=== PATIENT | female | born 1990 | race Caucasian/White ===

== ENCOUNTER → 2016-09-04 | Outpatient (CLI) | payer OTHER ==
[~2016-09-04] MED LIST: ALBU1AER9 INH; ETONMIS VAGRING; LEVO25TA5 PO; TRAZ1TAB8 PO; WLLSR150 PO
[2016-09-05 06:58] LABS: ESTIMATED AVERAGE GLUCOSE 94 mg/dl; HA1C FLAG Normal (Normal)
== END | disposition home or self-care (01) ==
LOC: C.LAB1850 15:38
PROVIDERS: ATTEND Internal Medicine Cardiovascular Disease
DX: R73.09 Other abnormal glucose (principal)

== ENCOUNTER 2020-05-22 16:55 | Inpatient (IN) ==
--- OUTSIDE RECORDS SUMMARY | 2020-05-22 16:58 | External Medical Summary | Continuity of Care Document ---
:1990 Author Name Tameka Nick, Provider Address Unavailable Unavailable , Care Team Providers Name Role Phone Unavailable Unavailable Unavailable Dieudonne Vang Unavailable [email or web address] [email or web address] TOVAR M.D. Unavailable Unavailable Unavailable Unavailable Unavailable Problems High risk medication use (V58.69) (Z79.899) Numbness of hand (782.0) (R20.0) Hypothyroidism (244.9) (E03.9) Elevated glucose level (790.29) (R73.09) Syncope (780.2) (R55) History of intravenous drug use in remission (305.93) (Z87.8 98) Absence of menses due to use of contraceptive (626.0) (N91.2 ) Acute upper respiratory infection (465.9) (J06.9) Acute pharyngitis (462) (J02.9) Depression (311) (F32.9) Vitamin D deficiency (268.9) (E55.9) Insomnia (780.52) (G47.00) Asthma (493.90) (J45.909) Anxiety (300.00) (F41.9) Callus (700) (L84) Screening for lipoid disorders (V77.91) (Z13.220) Contraceptive use (V25.40) (Z30.40) Allergies and Adverse Reactions No Known Drug Allergies (Allergy) Medications NuvaRing 0.12-0.015 MG/24HR Vaginal Ring; USE DIRECTED KEITH García Start: 17-May-2014 Quantity: 3 Refills: 3 Ibuprofen 200 MG Oral Tablet; TAKE 3 TABLET Every 6 hours NH N , M.D. Refills: 0 Ventolin HFA 108 (90 Base) MCG/ACT Inhal ation Aerosol Solution; INHALE 1 TO 2 PUFFS EVERY 4 TO 6 HOURS NEEDED. Sandoval Kasper Start: 17-May-2014 Quantity: 1 18 GM Inhaler Refills: 5 Vitamin D3 50 MCG (2000 UT) Oral Capsule; TAKE 2 CAPSULE Heidi ly DO Roberto Tovar Start: 26-Jun-2015 Refills: 3 Wellbutrin SR 200 MG Oral Tablet Extende d Release 12 Hour; TAKE 1 TABLET TWICE DAILY. Sandoval Refills: 0 traZODone HCl - 100 MG Oral Tablet; TAKE 2 TABLET Bedtime DO Roberto Chawla Start: 26-Jun-2015 Refills: 0 Levothyroxine Sodium 25 MCG Oral Tablet; take 1 tablet by mouth once daily DO Roberto Tovar Start: 22-Dec-2014 Quantity: 30 Refills: 5 Procedures Procedures not documented Immunizations Immunizations not documented Family History Father Family history of schizophrenia (V17.0) (Z81.8) Status: Acti ve Family history of muscular dystrophy (V17.2) (Z82.0) Status: Active Mother Family history of hypertension (V17.49) (Z82.49) Status: Act harlan Family history of seizures (V19.8) (Z84.89) Status: Active Brother Family history of bipolar disorder (V17.0) (Z81.8) Status: A ctive Family history of depression (V17.0) (Z81.8) Status: Active Social History - Smoking Status Never smoked tobacco Plan of Treatment Planned Observations Planned Goals not documented Results No Known Results Results not documented
[2020-05-22] MEDS ORDERED: ONDANSETRON INJ 2 MG/ML 2 ML VIAL IV STA (19:16)
[2020-05-22] MEDS ORDERED: SODIUM CHLORIDE 0.9% 1000ML 2,000 ML IV ONE (19:16)
[2020-05-22] MEDS ORDERED: KETOROLAC TROMETHAMINE 15 MG/ML VIAL IV ONE (19:16)
--- NOTE | 2020-05-22 19:21 | Emergency Department Note ---
Impression & Plan Sepsis, Flank Pain, Pyelonephritis ED Provider Note NAME: CAT JOSEPH AGE: 29 SEX: F : 1990 ARRIVES VIA: Walk-In INFORMANT: Patient ED PROVIDER(S): Epi Wayne DO CHIEF COMPLAINT: Flank pain HPI: Patient is a 29-year-old female who presents the ER for right flank pain. This started this past . It has been gradually getting worse. She de scribes as a 7 out of 10. She admits to nausea and vomiting with it. She has been taking Tylenol. She was seen by her PCP at [facility] and had an x-ray and a urine culture with some apparent E. coli. She denies any fevers. No chest pain or shortness of breath. No loss of taste or smell. No other exacerbating or remitting factors. No history of any stones. No previous abdominal surgeries. Last menstrual period was several months ago as she has an IUD. Pain in the right flank is worse with twisting turning bending. ROS: See above HPI for pertinent positives & negatives. A total of 10 systems reviewed and were otherwise negative. PAST MEDICAL HISTORY:See Below PAST SURGICAL HISTORY:See Below FAMILY HISTORY:See Below SOCIAL HISTORY:See Below HOME MEDICATIONS:See Below ALLERGIES:See Below VITALS:See Below PHYSICAL EXAMINATION: GENERAL: Sitting up in bed, alert, well appearing, well nourished, no distress, non-toxic EYE EXAM: normal conjunctiva. OROPHARYNX: no exudate, no erythema, lips, buccal mucosa, and tongue normal and mucous membranes are moist NECK: supple, no nuchal rigidity, no adenopathy, non-tender LUNGS: Clear to auscultation. Normal chest wall mechanics HEART: no murmurs, S1 normal and S2 normal ABDOMEN: abdomen soft, mild tenderness throughout right flank, normo-active bowel sounds, no masses, no rebound or guarding. BACK: Back is symmetrical on inspection and there is no deformity, no midline tenderness, no CVA tenderness. SKIN: no rashes and no bruising UPPER EXTREMITIES: upper extremities are grossly normal. LOWER EXTREMITIES: No pitting edema. NEURO EXAM: Normal sensorium, cranial nerves II-XII grossly intact, normal speech, no gross weakness of arms, no gross weakness of legs. MEDICAL DECISION MAKING: Patient is a 29-year-old female who presents the ER for right flank pain associated with known E. coli UTI referred in. IV was established blood work was obtained. Labs show leukocytosis of 19,000. No significant anemia. Platelets were elevated. BMP with mild hyponatremia. LFTs bilirubin was unremarkable. Lipase was normal. UA did have nitrates, white cells, leukocytes and bacteria. was negative. CT abdomen pelvis shows hydroureter consistent with either a recently passed stone or a sending infection. With a clear UTI, white count and heart rate in the 130s initially favor this con sistent with sepsis secondary to pyelonephritis. Patient was given IV fluids and IV antibiotics. She was also given IV Toradol and Zofran. She did vomit earlier today. With her history discussed with the hospitalist for further evaluation and admission. Triage Nursing notes reviewed. Prior medical records reviewed Vital Signs: reviewed and remarkable for tachy Differential diagnosis: Differential diagnosis includes etiologies such as sepsis, UTI, pneumonia, metabolic, electrolyte abnormalities, cardiac sources, intracerebral event, toxicologic, neurological, as well as others were entertained. ER treatment provided: See below Diagnostics interpreted by me: ECG: none Cardiac Monitoring: An order was placed for continuous cardiac monitoring. The monitor shows a rate of 110 with sinus rhythm. Laboratory studies: As stated above and show below. Imaging studies: CT as discussed above Consultation(s): Discussed with Dr. Brooke for further evaluation ED COURSE: Procedures: none Critical Care: None Past Med/Surg History Social History Smoking Status: Never smoker Feels Safe at Home: Yes Allergies Allergies Allergy/AdvReac Type Severity Reaction Status Date / Time house dust AdvReac Severe Asthma Verified 05/22/20 21:32 attack ENVIRONMENTAL Allergy Intermediate ITCHY Uncoded 05/22/20 21:32 EYES,RUNNY NOSE, SNEEZE Home Meds Home Medications Medication Instructions Recorded Confirmed albuterol sulfate 2 puff INHALATION Q4H PRN 05/22/20 05/22/20 bupropion HCl [Wellbutrin SR] 400 mg PO QAM 05/22/20 05/22/20 fluoxetine [Prozac] 40 mg PO QAM 05/22/20 05/22/20 fluticasone propionate 2 spray INTRANASAL DAILY PRN 05/22/20 05/22/20 levonorgestrel [Mirena] 20 mcg INTRAUTERINE DIRECTED 05/22/20 05/22/20 levothyroxine 25 mcg PO QAM 05/22/20 05/22/20 spironolactone 25 mg PO QAM 05/22/20 05/22/20 trazodone 200 mg PO 05/22/20 05/22/20 Results & Data (ED) Vital Signs Vital Signs - 24 hr 05/22/20 17:37 05/22/20 19:33 05/22/20 20:00 Temperature 37.3 C Temperature Source Oral Pulse Rate 124 H 105 H 101 H Respiratory Rate 18 22 22 Respiratory Effort / Characteristics Non-Labored Spontaneous Respiratory Depth Normal Respiratory Pattern Regular Blood Pressure 134/86 Blood Pressure Mean 102 Blood Pressure Position Sitting Pulse Oximetry 96 Oxygen Delivery Method Room Air Sepsis Recent Fever Within 48 Hours Yes Sepsis New/Unexplained Change in Mental Status N/A Sepsis Action Taken by Nursing No Action Required 05/22/20 20:33 05/22/20 21:00 05/22/20 21:30 Temperature Temperature Source Pulse Rate 111 H 100 H 100 H Respiratory Rate 19 19 22 Respiratory Effort / Characteristics Respiratory Depth Respiratory Pattern Blood Pressure Blood Pressure Mean Blood Pressure Position Pulse Oximetry Oxygen Delivery Method Sepsis Recent Fever Within 48 Hours Sepsis New/Unexplained Change in Mental Status Sepsis Action Taken by Nursing Laboratory Data Result diagrams: 05/22/20 19:34 05/22/20 19:34 Lab Results 05/22/20 05/22/20 05/22/20 Range/Units 19:34 19:34 19:34 WBC 18.93 H (4.8-10.8) K/uL RBC 4.31 (4.2-5.4) M/uL Hgb 13.7 (12.0-16.0) g/dL Hct 39.8 (37-47) % MCV 92.3 (80-100) fL MCH 31.8 (25-34) pg MCHC 34.4 (32-36) g/dL RDW Std Deviation 42.4 (36.4-46.3) fL RDW Coeff of Adrianna 12.5 (11.5-14.5) % Plt Count 406 H (130-400) K/uL MPV 9.4 (7.4-10.4) fL Immature Gran % (Auto) 0.3 % Neut % (Auto) 76.7 % Lymph % (Auto) 11.0 % Terry % (Auto) 11.8 % Eos % (Auto) 0.1 % Baso % (Auto) 0.1 % Neut # (Auto) 14.54 H (1.4-6.5) K/uL Lymph # (Auto) 2.08 (1.2-3.4) K/uL Terry # (Auto) 2.23 H (0.11-0.59) K/uL Eos # (Auto) 0.01 (0-0.5) K/uL Baso # (Auto) 0.02 (0-0.2) K/uL Immature Gran # (Auto) 0.05 H (0.00-0.02) K/uL Sodium 133 L (136-145) mmol/L Potassium 4.0 (3.5-5.1) mmol/L Chloride 99 (98-107) mmol/L Carbon Dioxide 30 (21-32) mmol/L Anion Gap 4.0 (3-11) BUN 6 L (7-18) mg/dl Creatinine 0.88 (0.6-1.2) mg/dl Est Cr Clr Drug Dosing 122.7 ml/min Est GFR ( Amer) 104.4 Est GFR (Non-Af Amer) 90.0 BUN/Creatinine Ratio 6.8 L (10-20) Glucose 107 H (70-99) mg/dl Calcium 9.4 (8.5-10.1) mg/dl Total Bilirubin 0.6 (0.2-1) mg/dl AST 11 L (15-37) U/L ALT 25 (12-78) U/L Alkaline Phosphatase 70 (45-117) U/L Total Protein 8.7 H (6.4-8.2) gm/dl Albumin 3.6 (3.4-5.0) gm/dl Globulin 5.1 H (2.5-4.0) gm/dl Albumin/Globulin Ratio 0.7 L (0.9-2) Lipase 57 L (73-393) U/L Urine Color Yellow Urine Appearance Clear (Clear) Urine pH 6.5 (4.5-7.5) Ur Specific [place] 1.004 (1.000-1.030) Urine Protein Negative (Negative) Urine Glucose (UA) Negative (Negative) Urine Ketones Negative (Negative) Urine Blood Trace H (Negative) Urine Nitrite Positive A (Negative) Urine Bilirubin Negative (Negative) Urine Urobilinogen Negative (Negative) Ur Leukocyte Esterase 3+ H (Negative) Urine WBC (Auto) 10-30 H (0-5) /hpf Urine RBC (Auto) 5-10 H (0-4) /hpf U Hyaline Cast (Auto) 0 (0-5) /lpf U Epithel Cells (Auto) 10-20 H (0-5) /lpf Urine Bacteria (Auto) 3+ H (Negative) Administered Medications Sodium Chloride (Nss 1000ml) 1,000 mls @ 125 mls/hr IV .Q8H CHIDI Stop: 06/21/20 23:22 Last Admin: 05/22/20 23:48 Dose: 125 mls/hr Documented by: [id number] Discontinued Medications Sodium Chloride (Nss 1000ml) 2,000 mls @ 999 mls/hr IV .Q2H1M ONE Stop: 05/22/20 21:16 Last Infusion: 05/22/20 22:03 Dose: 0 mls/hr Documented by: [id number] Admin: 05/22/20 19:46 Dose: 999 mls/hr Documented by: [id number] Ceftriaxone Sodium (Rocephin) 2,000 mg in 70 mls @ 140 mls/hr IV NOW STA Stop: 05/22/20 21:19 Last Infusion: 05/22/20 22:03 Dose: 0 mls/hr Documented by: [id number] Admin: 05/22/20 21:31 Dose: 140 mls/hr Documented by: [id number] Ketorolac Tromethamine (Ketorolac Tromethamine 15 Mg/Ml Vial) 15 mg IV NOW ONE Stop: 05/22/20 19:17 Last Admin: 05/22/20 19:56 Dose: 15 mg Documented by: [id number] Ondansetron HCl (Ondansetron Inj 2 Mg/Ml 2 Ml Vial) 4 mg IV NOW STA Stop: 05/22/20 19:17 Last Admin: 05/22/20 19:56 Dose: 4 mg Documented by: [id number] Trazodone HCl (Trazodone Hcl 100 Mg Tab) 200 mg PO NOW STA Stop: 05/22/20 23:24 Last Admin: 05/23/20 00:14 Dose: 200 mg Documented by: [id number] Discharge Plan Visit Data Chief Complaint: Flank Pain Stated Complaint: FLANK PAIN,FEAVER,NAUSEA ED Provider: Epi Wayne Discharge Problem: Sepsis, Flank Pain, Pyelonephritis Patient Disposition: Admitted As Inpatient Discharge Instructions Interventions: ED Discharge Assessment Last Done: 05/22/20 22:39 Discharge Problem: Sepsis Qualifiers: Sepsis type: Escherichia coli Sepsis acute organ dysfunction status: unspecifie d Qualified Code(s): A41.51 - Sepsis due to Escherichia coli [E. coli]
[2020-05-22 19:46] LABS: Basophils # (auto) 0.02 K/uL (0-0.2); Basophils % (auto) 0.1 %; Eosinophils # (auto) 0.01 K/uL (0-0.5); Eosinophils % (auto) 0.1 %; Hematocrit (blood only) 39.8 % (37-47); Hemoglobin 13.7 g/dL (12.0-16.0); Immature Granulocytes # (auto) 0.05 K/uL (0.00-0.02); Immature Granulocytes % (auto) 0.3 %; Lymphocytes # (auto) 2.08 K/uL (1.2-3.4); Mean Corpuscular Hemoglobin 31.8 pg (25-34); Mean Corpuscular Hgb Conc 34.4 g/dL (32-36); Mean Corpuscular Volume 92.3 fL (80-100); Mean Platelet Volume 9.4 fL (7.4-10.4); Monocytes # (auto) 2.23 K/uL (0.11-0.59); Monocytes % (auto) 11.8 %; Neutrophils # (auto) 14.54 K/uL (1.4-6.5); Neutrophils % (auto) 76.7 %; Platelet Count 406 K/uL (130-400); RDW Coefficient of Variation 12.5 % (11.5-14.5); RDW Standard Deviation 42.4 fL (36.4-46.3); Red Blood Count 4.31 M/uL (4.2-5.4); White Blood Count 18.93 K/uL (4.8-10.8)
[2020-05-22 19:52] LABS: Appearance Urine Clear (Clear); Bilirubin Urine Negative (Negative); Blood Urine Trace (Negative); Color Urine Yellow; Glucose Urine UA Negative (Negative); Ketones Urine Negative (Negative); Leukocyte Esterase Urine 3+ (Negative); Nitrite Urine Positive (Negative); Protein Urine Negative (Negative); Specific Gravity Urine 1.004 (1.000-1.030); Urobilinogen Urine Negative (Negative); pH Urine 6.5 (4.5-7.5)
[2020-05-22 20:03] LABS: Albumin Level 3.6 gm/dl (3.4-5.0); BUN Creatinine Ratio 6.8 (10-20); Calcium 9.4 mg/dl (8.5-10.1); Creatinine Clr Calc Pharmacy 122.7 ml/min; Est GFR (African American) 104.4
[2020-05-22 20:06] LABS: Albumin Globulin Ratio 0.7 (0.9-2); Bacteria Urine Automated 3+ (Negative); Bilirubin,Total 0.6 mg/dl (0.2-1); Globulin 5.1 gm/dl (2.5-4.0); Total Protein 8.7 gm/dl (6.4-8.2)
[2020-05-22 20:07] LABS: Cast Urine Automated 0 /lpf (0-5)
--- NOTE | 2020-05-22 20:26 | CT Scan Report ---
ABDOMEN AND PELVIS CT WITHOUT CONTRAST CT DOSE: 1329.11 mGy.cm HISTORY: Acute right-sided flank pain r flank pain TECHNIQUE: Multiaxial CT images of the abdomen and pelvis were performed without contrast. A dose lo wering technique was utilized adhering to the principles of ALARA. COMPARISON STUDY: None. FINDINGS: Clear lung bases. No pneumatosis or pneumoperitoneum. Imaged inferior cardiac chambers are unremarkable. Hepatomegaly with hepatic steatosis. Indeterminate ill-defined 10 mm hypodensity of the mid spleen, statistically benign. Pancreas, adrenal glands and gallbladder are unremarkable. Normal left kidney. Mild right-sided perinephric stranding with mild hydroureteronephrosis. Punctate nonobst ructing calculus of the inferior pole right kidney. No obstructing ureteral calculus or lesion. Mild urinary bladder distention. IUD of the mid uterus. Unremarkable appearance of the ovaries. Aorta and IVC are unremarkable. No adenopathy. No bowel obstruction or bowel wall thickening. Noninflamed appendix. Unremarkable soft tissues. No ac soboba fracture. Chronic appearing bilateral L5 pars defects with 6 mm anterolisthesis L5 on S1. IMPRESSION: 1. Mild right-sided hydroureteronephrosis without obstructing calculus or lesion. Findings are sugges tive of recently passed calculus versus ascending infection. Correlate with urinalysis. 2. Punctate nonobstructing calculus of the inferior pole right kidney. 3. No bowel obstruction or bowel wall thickening. Normal appendix. 4. Hepatomegaly with hepatic steatosis. 5. Chronic appearing L5 pars defects with grade 1 anterolisthesis. ACT 112: Negative or not required by law. The above report was generated using voice recognition software. It may contain grammatical, syntax o r spelling errors. Electronically signed by: Mehran Cagle M.D. 05/22/2020 8:25 PM
[2020-05-22] MEDS ORDERED: cefTRIAXone SODIUM 2,000 MG/70 ML BAG IV STA (20:50)
[2020-05-22] MEDS ORDERED: MoRPHine SULFATE 2 MG/ML CARP IV PRN (23:23)
[2020-05-22] MEDS ORDERED: TRAZODONE HCL 100 MG TAB PO STA (23:23)
[2020-05-22] MEDS ORDERED: ONDANSETRON INJ 2 MG/ML 2 ML VIAL IV PRN (23:23)
[2020-05-22] MEDS ORDERED: FLUTICASONE PROPIONATE NA SPR 16 GM BTL PRN (23:23)
[2020-05-22] MEDS ORDERED: ALBUTEROL HFA 8 GM INHALER INH PRN (23:23)
[2020-05-22] MEDS: SODIUM CHLORIDE 0.9% 1000ML 1,000 ML IV SCH (23:48)
--- NOTE | 2020-05-23 00:27 | History and Physical Report ---
DATE OF ADMISSION: 05/22/2020 CHIEF COMPLAINT: Right flank pain. HISTORY OF PRESENT ILLNESS: A 29-year-old female with past medical history significant for hypothyroidism, intermittent asthma, perennial allergic rhinitis with seasonal variation, vitamin D insufficiency, family history of myotonic dystrophy, opiate dependence in remission, history of heroin abuse, migraine variant, depression, history of syncope, presents with right flank pain. The patient says the patient noticed right flank pain about last , she saw her PCP on Friday, UA was done, thought to be possibly some urinary tract infection, awaiting further culture, but patient developed fever and worsening flank pain about 8-9/10 in severity, which prompted her to come to the ER and imaging studies, CAT scan done here in the ER showing mild right sided hydroureteronephrosis without obstructing calculus or lesion. Findings consistent with recently passed calculus versus ascending infection and UA was positive and white count was 18k. Hemodynamics are stable. The patient received pain medication and pain now she says is like 4-5/10 in severity currently, resting comfortably. Has some headache, no blurred vision, no earache, no runny nose, no sore throat, no cough, no loss of sense of smell or taste. No dysphagia, no odynophagia, no chest pain, shortness of breath. She has one episode of nausea and vomiting today. Currently, she is fine. No abdominal pain, no diarrhea or constipation. No burning micturition, no blood in the urine. No swelling in the legs, no rash. ALLERGIES: ENVIRONMENTAL DUST. PAST MEDICAL HISTORY: As mentioned above. PAST SURGICAL HISTORY: Dental surgery. MEDICATIONS: The patient is on albuterol 2 puffs inhalation q. 4 hours p.r.n., Wellbutrin SR 400 mg p.o. a.m., Prozac 40 mg p.o. a.m., Flonase 2 sprays intranasal daily p.r.n., levonorgestrel 20 mcg IU as directed, levothyroxine 25 mcg p.o. daily, spironolactone 25 mg p.o. daily, trazodone 50 mg p.o. at bedtime. FAMILY HISTORY: Significant for father had stomach cancer, diabetes, muscular dystrophy. Mother has history of seizures, hypertension, fibromyalgia. Maternal grandmother had uterine or ovarian cancer. Paternal grandmother had lung cancer. SOCIAL HISTORY: Single. No smoking, no alcohol. No drug use. No history of heroin use, none since 2012. REVIEW OF SYMPTOMS: As per HPI. Rest of review of symptoms negative. PHYSICAL EXAMINATION: GENERAL: The patient is obese, not in acute distress. VITAL SIGNS: Temperature 37.3, pulse 111, respiratory rate 19, blood pressure 134/86, oxygen 96% room air. HEENT: No pallor, no icterus. Pupils equal, round, reactive to light. NECK: No JVD, no neck masses, no carotid bruits. CARDIOVASCULAR: S1, S2 heard, regular rate and rhythm, no murmur, no gallop. RESPIRATORY SYSTEM: Normal AP diameter. No accessory muscle use. No wheezing, no crackles. ABDOMEN: Soft, bowel sounds present. Mild right lower quadrant tenderness and mild CVA tenderness present, no guarding, no rigidity. No distention. CENTRAL NERVOUS SYSTEM: Cranial nerves II-XII grossly intact. Nonfocal. EXTREMITIES: No edema, no erythema. LABORATORY DATA: WBC 18, hemoglobin 13.7, hematocrit 39.8, platelets 406. Sodium 133, potassium 4, chloride 99, bicarbonate 30, BUN 6, creatinine 0.8, serum glucose 107, calcium 9.4, total bilirubin 0.6, AST 11, ALT 25, alkaline phosphatase 70, albumin 3.6, lipase 57. Urinalysis positive for nitrite, +3 leukocyte esterase, +3 bacteria. IMAGING: CT abdomen and pelvis, mild right sided hydroureteronephrosis without obstructing calculus or lesion. Findings suggest history of recently passed calculus versus ascending infection correlate with urinalysis. Punctate nonobstructing calculus in the inferior pole of right kidney, normal appendix. Chronic appearing L3 pars defect with grade 1 anterolisthesis. ASSESSMENT AND PLAN: This is a 29-year-old female who presents urinary tract infection with possible pyelonephritis. 1. Possible right pyelonephritis and urinary tract infection. CAT scan showing moderate right hydroureteronephrosis, possible passing of the stone versus ascending infection. The patient has leukocytosis, mildly tachycardic. She has had fever at home but afebrile currently, received Rocephin in the ER. We will continue Rocephin, IV fluids. Follow the cultures. Monitor in the medical floor. 2. History of hypothyroidism. Continue Synthroid. 3. History of depression. Continue fluoxetine and bupropion. 4. History of asthma. Continue albuterol. 5. History of allergic rhinitis. Flonase p.r.n. 6. Deep venous thrombosis prophylaxis, sequential compression devices for now. 7. Disposition: Monitor in medical floor. Expect to discharge home and follow with family doctor. Level 1 full code. MTDD
[2020-05-23] MEDS: ACETAMINOPHEN 325 MG TAB PO PRN ×2 (04:07→14:26)
[2020-05-23 05:44] LABS: Basophils # (auto) 0.02 K/uL (0-0.2); Basophils % (auto) 0.2 %; Eosinophils # (auto) 0.05 K/uL (0-0.5); Eosinophils % (auto) 0.4 %; Hematocrit (blood only) 35.8 % (37-47); Hemoglobin 11.9 g/dL (12.0-16.0); Immature Granulocytes # (auto) 0.04 K/uL (0.00-0.02); Immature Granulocytes % (auto) 0.3 %; Lymphocytes # (auto) 1.54 K/uL (1.2-3.4); Lymphocytes % (auto) 11.7 %; Mean Corpuscular Hemoglobin 30.7 pg (25-34); Mean Corpuscular Hgb Conc 33.2 g/dL (32-36); Mean Corpuscular Volume 92.3 fL (80-100); Mean Platelet Volume 9.5 fL (7.4-10.4); Monocytes % (auto) 14.5 %; Neutrophils # (auto) 9.57 K/uL (1.4-6.5); Neutrophils % (auto) 72.9 %; Platelet Count 323 K/uL (130-400); RDW Coefficient of Variation 12.6 % (11.5-14.5); RDW Standard Deviation 42.8 fL (36.4-46.3); Red Blood Count 3.88 M/uL (4.2-5.4); White Blood Count 13.12 K/uL (4.8-10.8)
[2020-05-23 06:18] LABS: BUN Creatinine Ratio 8.3 (10-20); Calcium 8.4 mg/dl (8.5-10.1); Creatinine Clr Calc Pharmacy 135.5 ml/min; Est GFR (African American) 115.4; Est GFR (Non-African American) 99.5; Potassium 3.7 mmol/L (3.5-5.1)
[2020-05-23] MEDS ORDERED: LEVOTHYROXINE SODIUM 25 MCG TABLET PO SCH (06:30)
[2020-05-23] MEDS ORDERED: LEVOTHYROXINE SODIUM 25 MCG TABLET PO STA (06:37)
[2020-05-23] MEDS: SODIUM CHLORIDE 0.9% 1000ML 1,000 ML IV SCH ×3 (06:57→20:32)
[2020-05-23] MEDS: FLUOXETINE HCL 20 MG CAP PO SCH (08:43)
[2020-05-23] MEDS: BuPROPion SR 100 MG TABCR PO SCH (08:43)
[2020-05-23] MEDS: SPIRONOLACTONE 25 MG TAB PO SCH (08:43)
--- NOTE | 2020-05-23 12:31 | Hospitalist Progress Note ---
Date of Service May 23, 2020 Assessment & Plan (1) Flank Pain: Sepsis secondary to acute pyelonephritis Fever at home, Tachycardic on admission, leukocytosis CT Abd/P show right hydroureteronephrosis without obstructing calculus (likely passed stone) Urine culture on admission growing GNR. Urine culture outpatient in [facility] growing E.coli Patient feeling better Leukocytosis improving Continue IVF Continue IV ceftriaxone (2) Intermittent asthma: Stable Continue albuterol prn (3) Depression: Stable Continue fluoxetine, bupropion (4) Hypothyroid: Continue levothyroxine DVT ppx- SCD, ambulate Admission and Anticipated Discharge Date Admission Date: May 22, 2020 Subjective Patient seen and examined Reports improving right flank pain Nausea, vomiting resolved No more fever Denied diarrhea Denied dysuria, freq, urgency Denied chest pain, SOB, DICKSON, cough Physical Exam Constitutional: well developed and + well hydrated; no acute distress Eyes: PERRL, conjunctivae normal, anicteric sclerae ENMT: external ear and nose normal, oropharynx normal Respiratory: normal respiratory effort, lungs clear to auscultation Cardiovascular: Rate/Rhythm: regular rhythm and + tachycardic Heart Sounds: normal S1 and normal S2 Extremities: no edema Gastrointestinal (Abdomen): normal bowel sounds, soft, nontender, no hepatosplenomegaly Musculoskeletal: no cyanosis or clubbing, extremities motor strength 5/5 Neurologic: PERRL, EOMI, accommodation nl, no face palsy, no dysarthria Psychiatric: A+Ox3, euthymic affect Genitourinary: Right CVA tenderness Results & Data Results & Data ([facility]) Vital Signs (Past 12 Hours) Vital Signs Temp Pulse Resp BP Pulse Ox 05/23/20 07:26 37.1 C 111 H 18 110/75 91 Laboratory Results Laboratory Results - last 24 hr 05/22/20 05/22/20 05/22/20 19:34 19:34 19:34 WBC 18.93 H RBC 4.31 Hgb 13.7 Hct 39.8 MCV 92.3 MCH 31.8 MCHC 34.4 RDW Std Deviation 42.4 RDW Coeff of Adrianna 12.5 Plt Count 406 H MPV 9.4 Immature Gran % (Auto) 0.3 Neut % (Auto) 76.7 Lymph % (Auto) 11.0 [place] % (Auto) 11.8 Eos % (Auto) 0.1 Baso % (Auto) 0.1 Neut # (Auto) 14.54 H Lymph # (Auto) 2.08 [place] # (Auto) 2.23 H Eos # (Auto) 0.01 Baso # (Auto) 0.02 Immature Gran # (Auto) 0.05 H Sodium 133 L Potassium 4.0 Chloride 99 Carbon Dioxide 30 Anion Gap 4.0 BUN 6 L Creatinine 0.88 Est Cr Clr Drug Dosing 122.7 Est GFR ( Amer) 104.4 Est GFR (Non-Af Amer) 90.0 BUN/Creatinine Ratio 6.8 L Glucose 107 H Calcium 9.4 Magnesium Total Bilirubin 0.6 AST 11 L ALT 25 Alkaline Phosphatase 70 Total Protein 8.7 H Albumin 3.6 Globulin 5.1 H Albumin/Globulin Ratio 0.7 L Lipase 57 L Urine Color Yellow Urine Appearance Clear Urine pH 6.5 Ur Specific [place] 1.004 Urine Protein Negative Urine Glucose (UA) Negative Urine Ketones Negative Urine Blood Trace H Urine Nitrite Positive A Urine Bilirubin Negative Urine Urobilinogen Negative Ur Leukocyte Esterase 3+ H Urine WBC (Auto) 10-30 H Urine RBC (Auto) 5-10 H U Hyaline Cast (Auto) 0 U Epithel Cells (Auto) 10-20 H Urine Bacteria (Auto) 3+ H POC Ur Test 05/22/20 05/23/20 05/23/20 Unknown 04:58 04:58 WBC 13.12 H RBC 3.88 L Hgb 11.9 L Hct 35.8 L MCV 92.3 MCH 30.7 MCHC 33.2 RDW Std Deviation 42.8 RDW Coeff of Adrianna 12.6 Plt Count 323 MPV 9.5 Immature Gran % (Auto) 0.3 Neut % (Auto) 72.9 Lymph % (Auto) 11.7 [place] % (Auto) 14.5 Eos % (Auto) 0.4 Baso % (Auto) 0.2 Neut # (Auto) 9.57 H Lymph # (Auto) 1.54 [place] # (Auto) 1.90 H Eos # (Auto) 0.05 Baso # (Auto) 0.02 Immature Gran # (Auto) 0.04 H Sodium 137 Potassium 3.7 Chloride 105 Carbon Dioxide 27 Anion Gap 5.0 BUN 7 Creatinine 0.81 Est Cr Clr Drug Dosing 135.5 Est GFR ( Amer) 115.4 Est GFR (Non-Af Amer) 99.5 BUN/Creatinine Ratio 8.3 L Glucose 105 H Calcium 8.4 L Magnesium 2.0 Total Bilirubin AST ALT Alkaline Phosphatase Total Protein Albumin Globulin Albumin/Globulin Ratio Lipase Urine Color Urine Appearance Urine pH Ur Specific [place] Urine Protein Urine Glucose (UA) Urine Ketones Urine Blood Urine Nitrite Urine Bilirubin Urine Urobilinogen Ur Leukocyte Esterase Urine WBC (Auto) Urine RBC (Auto) U Hyaline Cast (Auto) U Epithel Cells (Auto) Urine Bacteria (Auto) POC Ur Test NEG
[2020-05-23] MEDS: KETOROLAC TROMETHAMINE 15 MG/ML VIAL IV PRN (15:10)
[2020-05-23] MEDS ORDERED: cefTRIAXone SODIUM 2,000 MG in DEXTROSE 5% 50 ML IV SCH (20:00)
[2020-05-23] MEDS ORDERED: TRAZODONE HCL 100 MG TAB PO SCH (21:00)
[2020-05-24] MEDS: KETOROLAC TROMETHAMINE 15 MG/ML VIAL IV PRN (00:06)
[2020-05-24] MEDS: SODIUM CHLORIDE 0.9% 1000ML 1,000 ML IV SCH (05:01)
[2020-05-24 06:26] LABS: Hematocrit (blood only) 37.1 % (37-47); Mean Corpuscular Hemoglobin 30.2 pg (25-34); Mean Corpuscular Hgb Conc 32.3 g/dL (32-36); Mean Corpuscular Volume 93.2 fL (80-100); Mean Platelet Volume 9.5 fL (7.4-10.4); Platelet Count 392 K/uL (130-400); RDW Coefficient of Variation 12.6 % (11.5-14.5); RDW Standard Deviation 43.1 fL (36.4-46.3); Red Blood Count 3.98 M/uL (4.2-5.4); White Blood Count 10.21 K/uL (4.8-10.8)
[2020-05-24] MEDS ORDERED: LEVOTHYROXINE SODIUM 75 MCG TABLET PO SCH (06:30)
[2020-05-24 06:57] LABS: BUN Creatinine Ratio 10.2 (10-20); Calcium 8.6 mg/dl (8.5-10.1); Creatinine Clr Calc Pharmacy 137.2 ml/min; Est GFR (African American) 117.1; Potassium 4.2 mmol/L (3.5-5.1)
[2020-05-24] MEDS: FLUOXETINE HCL 20 MG CAP PO SCH (08:19)
[2020-05-24] MEDS: BuPROPion SR 100 MG TABCR PO SCH (08:19)
[2020-05-24] MEDS: SPIRONOLACTONE 25 MG TAB PO SCH (08:19)
--- NOTE | 2020-05-24 12:19 | Hospitalist Progress Note ---
Date of Service May 24, 2020 Assessment & Plan (1) Flank Pain: Sepsis secondary to acute pyelonephritis per Dr. Alexander (hospitalist): Fever at home, Tachycardic on admission, leukocytosis CT Abd/P show right hydroureteronephrosis without obstructing calculus (likely passed stone) Urine culture on admission: E fergusonii Urine culture outpatient in [facility] growing E.coli received IV Ceftriaxone x 2 doses patient clinically improved afebrile, leukocytosis resolved Urine cultures from both outpatient and inpatient reviewed discharge on 12 more days of Cefdinir 300mg q12h to complete 14 day course counseled to drink plenty of water, take probiotics x 1 month ff up with PCP in 1 week (2) Intermittent asthma: Stable Continue albuterol prn (3) Depression: Stable Continue fluoxetine, bupropion (4) Hypothyroid: Continue levothyroxine DVT ppx- SCD, ambulate D/C home ff up with PCP in 1 week per d/c instructions Admission and Anticipated Discharge Date Admission Date: May 22, 2020 Subjective ff up for pyelonephritis, Right seen resting in bedside chair, comfortable in good spirits states she feels much better overall minimal right flank pain, denies urinary symptoms, fever/chills no other symptoms states she is ready for discharge today Review of Systems Review of Systems: All systems reviewed & are unremarkable except as noted in Subjective Physical Exam Physical Exam: General- oriented x 3, not in distress, speaks in sentences with no effort or accessory muscle use Eyes- anicteric Neck- no JVD Lungs- clear breath sounds bilaterally, no rales/wheezes Heart- normal rate, regular rhythm; no murmurs Abdomen- normal bowel sounds, nondistended, soft, nontender no CVA tenderness Extremities- no pretibial edema, no calf tenderness Neuro- alert, oriented x 3; no gross focal neurologic deficits Skin- warm & dry Results & Data Results & Data ([facility]) Vital Signs (Past 12 Hours) Vital Signs Temp Pulse Resp BP Pulse Ox 05/24/20 09:31 36.9 C 99 H 18 129/83 94
--- NOTE | 2020-05-24 12:36 | Discharge Summary ---
Date of Service May 24, 2020 Admission HPI Per Admitting Provider CHIEF COMPLAINT: Right flank pain. HISTORY OF PRESENT ILLNESS: A 29-year-old female with past medical history significant for hypothyroidism, intermittent asthma, perennial allergic rhinitis with seasonal variation, vitamin D insufficiency, family history of myotonic dystrophy, opiate dependence in remission, history of heroin abuse, migraine variant, depression, history of syncope, presents with right flank pain. The patient says the patient noticed right flank pain about last , she saw her PCP on Friday, UA was done, thought to be possibly some urinary tract infection, awaiting further culture, but patient developed fever and worsening flank pain about 8-9/10 in severity, which prompted her to come to the ER and imaging studies, CAT scan done here in the ER showing mild right sided hydroureteronephrosis without obstructing calculus or lesion. Findings consistent with recently passed calculus versus ascending infection and UA was positive and white count was 18k. Hemodynamics are stable. The patient received pain medication and pain now she says is like 4-5/10 in severity currently, resting comfortably. Has some headache, no blurred vision, no earache, no runny nose, no sore throat, no cough, no loss of sense of smell or taste. No dysphagia, no odynophagia, no chest pain, shortness of breath. She has one episode of nausea and vomiting today. Currently, she is fine. No abdominal pain, no diarrhea or constipation. No burning micturition, no blood in the urine. No swelling in the legs, no rash. Admission Exam Per Admitting Provider GENERAL: The patient is obese, not in acute distress. VITAL SIGNS: Temperature 37.3, pulse 111, respiratory rate 19, blood pressure 134/86, oxygen 96% room air. HEENT: No pallor, no icterus. Pupils equal, round, reactive to light. NECK: No JVD, no neck masses, no carotid bruits. CARDIOVASCULAR: S1, S2 heard, regular rate and rhythm, no murmur, no gallop. RESPIRATORY SYSTEM: Normal AP diameter. No accessory muscle use. No wheezing, no crackles. ABDOMEN: Soft, bowel sounds present. Mild right lower quadrant tenderness and mild CVA tenderness present, no guarding, no rigidity. No distention. CENTRAL NERVOUS SYSTEM: Cranial nerves II-XII grossly intact. Nonfocal. EXTREMITIES: No edema, no erythema. Principal Diagnosis SEPSIS, ACUTE PYELONEPHRITIS, POSSIBLE PASSED KIDNEY STONE Discharge Exam General- oriented x 3, not in distress, speaks in sentences with no effort or accessory muscle use Eyes- anicteric Neck- no JVD Lungs- clear breath sounds bilaterally, no rales/wheezes Heart- normal rate, regular rhythm; no murmurs Abdomen- normal bowel sounds, nondistended, soft, nontender no CVA tenderness Extremities- no pretibial edema, no calf tenderness Neuro- alert, oriented x 3; no gross focal neurologic deficits Skin- warm & dry Discharge Data Allergies Allergy/AdvReac Type Severity Reaction Status Date / Time house dust AdvReac Severe Asthma Verified 05/22/20 21:32 attack ENVIRONMENTAL Allergy Intermediate ITCHY Uncoded 05/22/20 21:32 EYES,RUNNY NOSE, SNEEZE Consultations 05/22/20 20:55 ED Decision to Admit Stat Ordered Studies 05/22/20 19:16 CT abd pelvis wo con Stat FINDINGS: Clear lung bases. No pneumatosis or pneumoperitoneum. Imaged inferior cardiac chambers are unremarkable. Hepatomegaly with hepatic steatosis. Indeterminate ill-defined 10 mm hypodensity of the mid spleen, statistically benign. Pancreas, adrenal glands and gallbladder are unremarkable. Normal left kidney. Mild right-sided perinephric stranding with mild hydroureteronephrosis. Punctate nonobstructing calculus of the inferior pole right kidney. No obstructing ureteral calculus or lesion. Mild urinary bladder distention. IUD of the mid uterus. Unremarkable appearance of the ovaries. Aorta and IVC are unremarkable. No adenopathy. No bowel obstruction or bowel wall thickening. Noninflamed appendix. Unremarkable soft tissues. No acute fracture. Chronic appearing bilateral L5 pars defects with 6 mm anterolisthesis L5 on S1. IMPRESSION: 1. Mild right-sided hydroureteronephrosis without obstructing calculus or lesion. Findings are suggestive of recently passed calculus versus ascending infection. Correlate with urinalysis. 2. Punctate nonobstructing calculus of the inferior pole right kidney. 3. No bowel obstruction or bowel wall thickening. Normal appendix. 4. Hepatomegaly with hepatic steatosis. 5. Chronic appearing L5 pars defects with grade 1 anterolisthesis. Hospital Course (1) Sepsis: Flank Pain: Sepsis secondary to acute pyelonephritis per Dr. Alexander (hospitalist): Fever at home, Tachycardic on admission, leukocytosis CT Abd/P show right hydroureteronephrosis without obstructing calculus (likely passed stone) Urine culture on admission: E fergusonii Urine culture outpatient in [facility] growing E.coli received IV Ceftriaxone x 2 doses patient clinically improved afebrile, leukocytosis resolved Urine cultures from both outpatient and inpatient reviewed discharge on 12 more days of Cefdinir 300mg q12h to complete 14 day course counseled to drink plenty of water, take probiotics x 1 month ff up with PCP in [address] Abdomen/Pelvis findings - Impression: 1. Mild right-sided hydroureteronephrosis without obstructing calculus or lesion. Findings are suggestive of recently passed calculus versus ascending infection. Correlate with urinalysis. 2. Punctate nonobstructing calculus of the inferior pole right kidney. 3. No bowel obstruction or bowel wall thickening. Normal appendix. 4. Hepatomegaly with hepatic steatosis. 5. Chronic appearing L5 pars defects with grade 1 anterolisthesis. - please refer to full report in the ordered studies above - counseled on low fat diet , exercise further management and ff up as outpatient Intermittent asthma: Stable Continue albuterol prn Depression: Stable Continue fluoxetine, bupropion Hypothyroid: Continue levothyroxine D/C home ff up with PCP in 1 week per d/c instructions Total Time Total Time Spent Total Time Spent (In Minutes): 45 MINUTES Discharge Plan Discharge Items Patient Disposition: Home - Self-Care Reason For Visit: RIGHT FLANK PAIN Discharge Diagnosis: KIDNEY INFECTION, RIGHT; POSSIBLE PASSED KIDNEY STONE Activity: Resume your previous activity Activity Comment: GRADUALLY TOLERATED Lifting: Gradually increase as tolerated Exercise/Sports: Gradually increase as tolerated Driving/Machine Use: NO DRIVING IF HAVING SIGNIFICANT PAIN Non-emergency contact: Primary Care Provider Call non-emergency contact if: you have any medication questions, your symptoms worsen, your pain is not controlled, your pain is worsening, your pain is unusual for you, your pain is concerning for you and you have a fever Follow-up/Referrals: Luisa Harrell DO [Physician] - 05/30/20 10:00 am (Date & Time 05/30/2020 10:00 AM Provider Luisa Harrell DO Department [facility] ) Diet: Low Fat Addtl Attending Provider Instructions: PLEASE REVIEW YOUR NEW MEDICATION LIST AND FOLLOW INSTRUCTIONS CAREFULLY. YOUR NEW MEDICATIONS INCLUDE: CEFDINIR- antibiotic for kidney infection CULTURELLE- probiotics to prevent diarrhea FINDINGS OF YOUR CT SCAN OF THE ABDOMEN SHOWED LIVER ENLARGEMENT AND FATTY CHANGES. PLEASE OBSERVE LOW FAT DIET, INCREASE EXCERCISE ACTIVITIES. FOLLOW UP AND MONITORING PER PRIMARY CARE PHYSICIAN. CALL PRIMARY CARE PHYSICIAN OR RETURN TO THE ER IMMEDIATELY IF WITH WORSENING OF SYMPTOMS, INCLUDING BACK/FLANK/ABDOMINAL PAIN, FEVER/CHILLS, NAUSEA/VOMITING, CHANGES WITH URINATION, DIARRHEA. FOLLOW UP WITH DR. SPICER NEXT WEEK OUTLINED ABOVE. Pending Studies at Discharge: No Stand-Alone Forms: My [facility] [employer], Smoking Cessation Medications and DC Order Prescriptions: New cefdinir 300 mg capsule 300 mg PO Q12H Qty: 24 RF: 0 Culturelle 10 billion cell capsule 1 cap PO DAILY Qty: 30 RF: 0 Continued fluoxetine [Prozac] 40 mg capsule 40 mg PO QAM RF: 0 Mirena 20 mcg/24 hours (5 yrs) 52 mg Intrauterine Device 20 mcg INTRAUTERINE DIRECTED RF: 0 spironolactone 25 mg tablet 25 mg PO QAM RF: 0 levothyroxine 25 mcg tablet 25 mcg PO QAM RF: 0 trazodone 100 mg tablet 200 mg PO HS RF: 0 albuterol sulfate 90 mcg/actuation HFA aerosol inhaler 2 puff INHALATION Q4H PRN (Reason: Wheezing) RF: 0 fluticasone propionate 50 mcg/actuation spray,suspension 2 spray INTRANASAL DAILY PRN (Reason: Allergy Symptoms) RF: 0 bupropion HCl [Wellbutrin SR] 200 mg tablet sustained-release 12 hr 400 mg PO QAM RF: 0 Discharge Orders: Discharge Order (Routine); Ordered 05/24/20 Ordered By: Steve Miller Admission Data Admit Date/Time: 05/22/20 21:33 Attending Provider: Steve Miller Admit Provider: Antoine Ness Primary Care Provider: PCP,NO Other Providers: Antoine Ness ; Ashley Alexander I.
== END 2020-05-24 14:34 | disposition home or self-care (01) | DRG 872 ==
LOC: ED 16:55 → 3E 21:33 → OBSVTOIN 21:33 → INTOOBSV 21:33 → SUATTDRO 21:33 → 3E 22:39
DX: N12 Tubulo-interstitial nephritis, not specified as acute or chronic; N20.2 Calculus of kidney with calculus of ureter; A41.9 Sepsis, unspecified organism; J45.20 Mild intermittent asthma, uncomplicated; E03.9 Hypothyroidism, unspecified; B96.20 Unspecified Escherichia coli [E. coli] as the cause of diseases classified elsewhere; F32.9 Major depressive disorder, single episode, unspecified